=== PATIENT | male | born 2005 | race Caucasian/White ===

== ENCOUNTER 2023-04-11 15:13 | Emergency (ER) | payer OTHER ==
[~2023-04-11] VITALS: Ht 175.3 cm; Wt 72.6 kg
[2023-04-11] MEDS ORDERED: IBUPROFEN 600 MG TAB ONE (15:52)
[2023-04-11] MEDS ORDERED: IBUPROFEN 600 MG TAB PO STA (15:54)
[2023-04-11 17:40] VITALS: O2SAT 97
[2023-04-13] MEDS ORDERED: AMOX TR-K CLV1 EAC2 PO (09:33)
== END 2023-04-11 17:58 | disposition home or self-care (01) ==
LOC: FSED 15:24
DX: S02.2XXA Fracture of nasal bones, initial encounter for closed fracture (principal); W20.8XXA Other cause of strike by thrown, projected or falling object, initial encounter; Y93.51 Activity, roller skating (inline) and skateboarding; Y92.89 Other specified places as the place of occurrence of the external cause; F31.9 Bipolar disorder, unspecified; F17.210 Nicotine dependence, cigarettes, uncomplicated
CPT/HCPCS: 70486; 99283